=== PATIENT | female | born 1935 | race Two or more races ===

== ENCOUNTER 2024-10-26 06:16 | Day surgery (SDC) | payer BC, SELFPAY | END 2024-10-26 09:47 | disposition home or self-care (01) | LOC: GI 06:16 | PROVIDERS: ATTENDING PHYSICIAN Internal Medicine Gastroenterology; FAMILY PHYSICIAN Internal Medicine | DX: R19.7 Diarrhea, unspecified (principal); K64.8 Other hemorrhoids; K57.30 Diverticulosis of large intestine without perforation or abscess without bleeding | CPT/HCPCS: 45380; 88305 ==